=== PATIENT | male | born 1990 | race Caucasian/White ===

== ENCOUNTER 2017-11-13 04:42 | Emergency (ER) | payer MEDICAID ==
[~2017-11-13] VITALS: Ht 165.1 cm; Wt 87.0 kg
[2017-11-13 04:50] VITALS: BP 138/80; PULSE 86; RESP 16; TEMP 97.9; O2SAT 98
--- NOTE | 2017-11-13 05:05 | PD ---
HPI Chief Complaint: Cold / Flu Symptoms Time Seen by Provider: 04:59 Travel History International Travel<30 days: No Contact w/Intl Traveler<30days: No Traveled to known affect area: No History of Present Illness HPI The patient is a 27year old male who presents to the [facility] emergency department with a history of upper respiratory congestion, cough that began last night. His son is been sick with a similar illness. The patient denies having any fevers. He reports that his nasal discharge is clear in color. His cough is nonproductive. He reports having sinus pressure around his nose. On review of systems otherwise, the patient denies having anyneck pain, chest pain , shortness of breath, abdominal pain, vomiting, diarrhea, urinary symptoms, or neurologic symptoms. He denies getting a flu shot this season. [facility] Past Medical History Narrative Medical The patient's past medical history is reportedly none. Past Surgical History Narrative Surgical The patient's past surgical history is reportedly none. Social History Alcohol Use: No Tobacco Use: No Substance Use: No Allergies-Medications (Allergen,Severity, Reaction): Coded Allergies: No Known Drug Allergies (Verified Allergy, Unknown, 11/13/17) Review of Systems Except as stated in HPI: all other systems reviewed are Neg General / Constitutional: No: Fever Eyes: No: Visual changes HENT: Positive: Congestion, No: Headaches Cardiovascular: No: Chest Pain or Discomfort Respiratory: Positive: Cough, No: Shortness of Breath Gastrointestinal: Positive: Nausea, No: Vomiting, Diarrhea, Abdominal Pain Genitourinary: No: Dysuria Musculoskeletal: No: Pain Skin: No Rash Neurologic: No: Weakness Psychiatric: No: Depression Endocrine: No: Polydipsia Hematologic/Lymphatic: No: Easy Bruising Physical Exam Narrative General: The patient is a well-developed well-nourished male in no acute distress. Head and Neck exam: Head is normocephalic atraumatic. Eyes: EOMI, pupils are equal round and reactive to light. Nose: Midline septum with erythematous edematous nasal mucosa and a clear nasal discharge Mouth: Dentition unremarkable. Moist mucus membranes. Posterior oropharynx is mildly erythematous. No tonsillar hypertrophy. Uvula midline. Airway patent. Ears: Tympanic membranes bilaterally are pearly with a good cone of light, no erythema or exudate. Neck: No palpable lymphadenopathy. No nuchal rigidity. No thyromegaly. Cardiovascular: Regular rate and rhythm without murmurs, gallops, or rubs. Lungs: Clear to auscultation bilaterally. No wheezes, rhonchi, or rales. Abdomen: Soft, without tenderness to palpation in all 4 quadrants of the abdomen. No guarding, rebound, or rigidity. Normal bowel sounds are audible. No tenderness on palpation of McBurney's point. Extremities: No clubbing, cyanosis, or edema. Back: No costovertebral angle tenderness to palpation. Neurologic Exam: Grossly nonfocal. Skin Exam: No rash noted. Intact skin that is warm and dry. Data Data Last Documented VS Vital Signs Date Time Temp Pulse Resp B/P (MAP) Pulse Ox O2 Delivery O2 Flow Rate FiO2 11/13/17 04:50 97.9 86 16 138/80 (99) 98 Room Air Orders Orders Influenzae A/B Antigen (11/13/17 04:59) MDM Medical Decision Making Medical Screen Exam Complete: Yes Emergency Medical Condition: Yes Medical Record Reviewed: Yes Differential Diagnosis Influenza, versus other viral upper respiratory infection, versus sinusitis, versus bronchitis Narrative Course During the course of the patients emergency department visit, the patients history, examination, and differential diagnosis were reviewed with the patient. The patient was placed on a photographic developer and printer with oximetry and frequent blood pressure monitoring. The patient had an influenza antigen sent. The patients laboratory studies were reviewed and remarkable for an influenza antigen that is negative. The patient was instructed regarding symptom control measures for an upper respiratory infection. He was instructed that the symptoms are likely related to a viral illness and would not respond to antibiotic. I recommended Tylenol or ibuprofen as needed is written on the package for fever or body aches. The patient is instructed to use guaifenesin, a mucolytic, to help with nasal congestion and sinus pressure. The patient is instructed to push fluids and get plenty of rest. Diagnosis Primary Impression: Upper respiratory infection Qualified Codes: J06.9 - Acute upper respiratory infection, unspecified; B97.89 - Other viral agents as the cause of diseases classified elsewhere Referrals: Primary Care Physician 1 week Patient Instructions: General Instructions, Upper Respiratory Infection (ED) Additional Instructions: I recommended Tylenol or ibuprofen as needed is written on the package for fever or body aches. The patient is instructed to use guaifenesin, a mucolytic , to help with nasal congestion and sinus pressure. The patient is instructed to push fluids and get plenty of rest. Med/Other Pt SpecificInfo: No Meds Exist/No RX given Disposition: 01 DISCHARGE HOME Condition: Stable Gemini Hercules MD Nov 13, 2017 05:05
== END 2017-11-13 06:26 | disposition home or self-care (01) ==
LOC: NEPC 04:42
DX: J06.9 Acute upper respiratory infection, unspecified (principal)
CPT/HCPCS: 87804; 99283